=== PATIENT | male | born 1945 | race Caucasian/White ===

== ENCOUNTER 2021-03-23 07:30 | Day surgery (SDC) | payer MEDICARE, BC ==
[~2021-03-23] VITALS: Ht 177.8 cm; Wt 87.2 kg
[2021-03-23 08:00] VITALS: BP 142/53
[2021-03-23 08:15] VITALS: BP 142/53
[2021-03-23] MEDS ORDERED: PRED10TA23 PO (08:16)
[2021-03-23] MEDS ORDERED: DILT-91 PO (08:16)
[2021-03-23] MEDS ORDERED: GABA300T25 PO ×2 (08:16)
[2021-03-23] MEDS ORDERED: ACET-1025 PO (08:16)
[2021-03-23] MEDS ORDERED: OMEP-50 PO (08:16)
[2021-03-23] MEDS ORDERED: vitamin d3 PO (08:16)
[2021-03-23] MEDS ORDERED: CYAN10007 IM (08:16)
[2021-03-23] MEDS ORDERED: NAPR220T67 PO (08:16)
[2021-03-23 08:30] VITALS: BP 149/70
[2021-03-23 09:30] VITALS: BP 141/73
[2021-03-23 09:35] VITALS: BP 169/69
[2021-03-23 10:00] VITALS: BP 142/53
== END 2021-03-23 09:50 | disposition home or self-care (01) ==
LOC: SSTAY O 07:30
PROVIDERS: ATTEND Radiology Diagnostic Radiology
DX: M71.21 Synovial cyst of popliteal space [Baker], right knee (principal); G62.9 Polyneuropathy, unspecified; E55.9 Vitamin D deficiency, unspecified; D46.9 Myelodysplastic syndrome, unspecified; G47.30 Sleep apnea, unspecified; Z86.19 Personal history of other infectious and parasitic diseases; M25.561 Pain in right knee
CPT/HCPCS: 10160; 76942

== ENCOUNTER 2023-07-17 09:33 | Outpatient (CLI) | payer MEDICARE, BC ==
[~2023-07-17 09:33] MED LIST: ACET-1025 PO; CYAN10007 IM; DILT-91 PO; GABA300T25 PO; NAPR220T67 PO; OMEP20CA16 PO; PRED10TA23 PO; vitamin d3 PO
[2023-07-17 10:07] LABS: BASOPHILS % (AUTO) 0.9 % (0-1); EOSINOPHILS % (AUTO) 0.2 % (0-6); HEMATOCRIT 32.6 % (42.0-52.0); HEMOGLOBIN 10.5 g/dl (14.0-17.9); LYMPHOCYTES # (AUTO) 0.9 X10'3 (1.1-4.8); LYMPHOCYTES % (AUTO) 25.7 % (21-51); MEAN CORPUSCULAR HEMOGLOBIN 39.7 PG (27.0-31.0); MEAN CORPUSCULAR HGB CONC 32.2 g/dL (33.0-36.5); MEAN CORPUSCULAR VOLUME 123.1 FL (78-98); MONOCYTES # (AUTO) 0.2 X10'3 (0-0.9); MONOCYTES % (AUTO) 5.5 % (2-12); NEUTROPHILS # (AUTO) 2.4 X10'3 (1.8-7.7); NEUTROPHILS % (AUTO) 67.7 % (42-75); PLATELET COUNT 98 X10'3 (140-440); RED BLOOD COUNT 2.65 X10'6 (4.70-6.10); RED CELL DISTRIBUTION WIDTH 19.5 % (11.5-14.5); WHITE BLOOD COUNT 3.5 X10'3 (4.5-11.0)
[2023-07-17 10:21] LABS: APTT 25 SECONDS (22-32); PROTHROMBIN TIME 10.4 SECONDS (9.0-12.0)
[2023-07-17 10:32] LABS: ANION GAP 2 (8-16); BILIRUBIN,TOTAL 0.3 MG/DL (0.1-1.0); BLOOD UREA NITROGEN 20 MG/DL (7-18); BUN/CREATININE RATIO 8.4 (10.0-20.0); CALCIUM 9.5 MG/DL (8.5-10.1); CHLORIDE 103 MMOL/L (99-107); CREATININE 2.39 MG/DL (0.60-1.10); GLUCOSE 95 MG/DL (70-104); POTASSIUM 4.5 MMOL/L (3.5-5.1); SODIUM 137 MMOL/L (135-145); TOTAL CARBON DIOXIDE 32.3 MMOL/L (24-32); eGFR 27 ML/MIN
[2023-07-17 10:33] LABS: ALANINE AMINOTRANSFERASE 33 U/L (12-78); ALBUMIN 2.7 G/DL (3.4-5.0); ALBUMIN/GLOBULIN RATIO 0.6 (1.1-1.5); ALKALINE PHOSPHATASE 45 IU/L (46-116); ASPARTATE AMINO TRANSFERASE 32 U/L (10-37); TOTAL PROTEIN 7.4 G/DL (6.4-8.2)
[2023-07-17 10:48] LABS: ANISOCYTOSIS 2+; PLATELET ESTIMATE DECREASED
[2023-07-17 10:49] LABS: STOMATOCYTES FEW
[2023-07-17 10:50] LABS: POLYCHROMASIA FEW; TEAR DROP CELLS FEW
[2023-07-17] MEDS ORDERED: iohexol 350MG/ML 100ml bottle IV ONE (10:52)
[2023-07-17] MEDS ORDERED: iohexol 350 MG/ML 50ML vial IV ONE (10:53)
[2023-07-24] MEDS ORDERED: MULT-1085 PO (14:34)
[2023-07-24] MEDS ORDERED: DANA200C PO (14:34)
[2023-07-24] MEDS ORDERED: LACT1CAP75 PO (14:34)
[2023-07-24] MEDS ORDERED: EPOE200015 SQ (14:34)
[2023-07-24] MEDS ORDERED: CALC600T22 PO (19:08)
[2023-07-24] MEDS ORDERED: CHOL500050 PO (19:08)
== END 2023-07-17 23:59 | disposition home or self-care (01) ==
LOC: RAD 09:33
PROVIDERS: ATTEND Student in an Organized Health Care Education/Training Program
DX: I48.91 Unspecified atrial fibrillation (principal); I48.92 Unspecified atrial flutter; Z95.818 Presence of other cardiac implants and grafts
CPT/HCPCS: 36415; 80053; 85008; 85025; 85610; 85730; J3490; Q9967

== ENCOUNTER 2023-07-22 15:48 | Day surgery (SDC) | payer MEDICARE, BC ==
[2023-07-22] VITALS (14 sets, daily range): BP systolic 115–169; BP diastolic 53–85; PULSE 67–85; RESP 14–18; TEMP 98; O2SAT 95–100
[~2023-07-22] VITALS: Ht 177.8 cm; Wt 79.7 kg
[2023-07-22] MEDS ORDERED: MIDAZolam 1mg/ml 10ml vial IV ONE (16:05)
[2023-07-22] MEDS ORDERED: fentaNYL/PF 50MCG/1 ML 2ML syringe IV ONE (16:05)
[2023-07-22] MEDS ORDERED: normal saline 1000ml 1,000 ML IV SCH (16:05)
[2023-07-22] MEDS ORDERED: FOLI0.4T6 PO (16:21)
[2023-07-22] MEDS ORDERED: CALC-212 PO (16:21)
[2023-07-22] MEDS ORDERED: LEVO50TA8 PO (16:21)
[2023-07-22] MEDS ORDERED: AMI200T PO (16:21)
[2023-07-24] MEDS ORDERED: EPOE200015 SQ (14:34)
[2023-07-24] MEDS ORDERED: LACT1CAP75 PO (14:34)
[2023-07-24] MEDS ORDERED: MULT-1085 PO (14:34)
[2023-07-24] MEDS ORDERED: DANA200C PO (14:34)
[2023-07-24] MEDS ORDERED: CHOL500050 PO (19:08)
[2023-07-24] MEDS ORDERED: CALC600T22 PO (19:08)
== END 2023-07-22 18:45 | disposition home or self-care (01) ==
LOC: SSTAY O 15:48 → EDSTATUS 16:00 → SSTAY O 18:45
PROVIDERS: ATTEND Student in an Organized Health Care Education/Training Program
DX: I48.20 Chronic atrial fibrillation, unspecified (principal); I08.1 Rheumatic disorders of both mitral and tricuspid valves; G47.30 Sleep apnea, unspecified; E03.9 Hypothyroidism, unspecified; M31.6 Other giant cell arteritis; Z79.899 Other long term (current) drug therapy; Z88.2 Allergy status to sulfonamides
CPT/HCPCS: 93312; 93325; J2250; J3010; J7030; A4620

== ENCOUNTER 2024-06-09 09:47 | Day surgery (SDC) | payer MEDICARE, BC ==
[2024-06-09] VITALS (12 sets, daily range): BP systolic 116–144; BP diastolic 61–76; PULSE 59–68; RESP 12–19; TEMP 98.2; O2SAT 95–100
[~2024-06-09] VITALS: Ht 177.8 cm; Wt 74.4 kg
[~2024-06-09 09:47] MED LIST changes: -ACET-1025 PO; +AMI200T PO; +CALC600T22 PO; +CHOL500050 PO; +CLOP-32 PO; -CYAN10007 IM; +DANA200C PO; -DILT-91 PO; +EPOE200015 SQ; +FOLI0.4T6 PO; +LACT1CAP75 PO; +LEVO50TA8 PO; +MULT-1085 PO; -NAPR220T67 PO; -vitamin d3 PO
[2024-06-09] MEDS ORDERED: PRED1TAB PO (10:25)
[2024-06-09] MEDS ORDERED: ACET-1025 PO (10:25)
[2024-06-09] MEDS ORDERED: ASPI81TA52 PO (10:25)
[2024-06-09] MEDS ORDERED: POLY119P2 PO (10:25)
[2024-06-09] MEDS ORDERED: ONDA-243 PO (10:25)
[2024-06-09] MEDS ORDERED: normal saline 1000ml 1,000 ML IV SCH (10:30)
[2024-06-09 10:45] LABS: BASOPHILS % (AUTO) 0.4 % (0-1); EOSINOPHILS % (AUTO) 0.3 % (0-6); HEMATOCRIT 31.2 % (42.0-52.0); HEMOGLOBIN 10.2 g/dl (14.0-17.9); LYMPHOCYTES # (AUTO) 1.1 X10'3 (1.1-4.8); MEAN CORPUSCULAR HEMOGLOBIN 40.6 PG (27.0-31.0); MEAN CORPUSCULAR HGB CONC 32.8 g/dL (33.0-36.5); MEAN CORPUSCULAR VOLUME 123.8 FL (78-98); MEAN PLATELET VOLUME 8.3 FL (7.4-10.4); MONOCYTES # (AUTO) 0.3 X10'3 (0-0.9); MONOCYTES % (AUTO) 7.2 % (2-12); NEUTROPHILS # (AUTO) 2.7 X10'3 (1.8-7.7); NEUTROPHILS % (AUTO) 65.1 % (42-75); PLATELET COUNT 95 X10'3 (140-440); RED BLOOD COUNT 2.52 X10'6 (4.70-6.10); RED CELL DISTRIBUTION WIDTH 18.8 % (11.5-14.5); WHITE BLOOD COUNT 4.2 X10'3 (4.5-11.0)
[2024-06-09 10:54] LABS: ALBUMIN 2.2 G/DL (3.4-5.0); ANION GAP 9 (8-16); BLOOD UREA NITROGEN 20 MG/DL (7-18); BUN/CREATININE RATIO 8.8 (10.0-20.0); CALCIUM 8.3 MG/DL (8.5-10.1); CHLORIDE 108 MMOL/L (99-107); CREATININE 2.26 MG/DL (0.60-1.10); GLUCOSE 99 MG/DL (70-104); POTASSIUM 4.1 MMOL/L (3.5-5.1); SODIUM 140 MMOL/L (135-145); eCRCL 28 ML/MIN; eGFR 28 ML/MIN
[2024-06-09 10:56] LABS: APTT 24 SECONDS (22-32); PROTHROMBIN TIME 10.9 SECONDS (9.0-12.0)
[2024-06-09] MEDS: MIDAZolam 1mg/ml 10ml vial IV ONE (14:39)
[2024-06-09] MEDS: fentaNYL/PF 50MCG/1 ML 2ML syringe IV ONE (14:39)
== END 2024-06-09 15:45 | disposition home or self-care (01) ==
LOC: SSTAY O 09:47
PROVIDERS: ATTEND Internal Medicine Interventional Cardiology
DX: I48.91 Unspecified atrial fibrillation (principal); E03.9 Hypothyroidism, unspecified; N18.9 Chronic kidney disease, unspecified; G47.33 Obstructive sleep apnea (adult) (pediatric); Z79.890 Hormone replacement therapy; Z79.899 Other long term (current) drug therapy; Z95.9 Presence of cardiac and vascular implant and graft, unspecified; Z88.1 Allergy status to other antibiotic agents; Z88.2 Allergy status to sulfonamides; Z88.8 Allergy status to other drugs, medicaments and biological substances
CPT/HCPCS: 36415; 80048; 85025; 85610; 85730; 93325; C8925; J2250; J3010; J7030; 93312